=== PATIENT | female | born 1960 | race African-American/Black ===

== ENCOUNTER 2017-03-03 20:25 | Inpatient (IN) | payer MEDICAID ==
[~2017-03-03] VITALS: Ht 157.5 cm; Wt 96.6 kg
[2017-03-03] MEDS ORDERED: SODIUM CHLORIDE 0.9% 1,000 ML IV SCH (20:35)
[2017-03-03 21:00] LABS: HEMATOCRIT 34.1 % (34.6-47.8); HEMOGLOBIN 10.7 g/dL (11.7-16.4); WHITE BLOOD COUNT 7.9 x10^3/uL (3.4-10)
[2017-03-03] MEDS ORDERED: CLOPIDOGREL 300 MG TABLET PO ONE (21:00)
[2017-03-03 21:24] LABS: ASPARTATE AMINO TRANSFERASE 14 U/L (15-37); BLOOD UREA NITROGEN 13 mg/dL (7-18)
[2017-03-03] MEDS ORDERED: METOPROLOL TARTRATE 50 MG TABLET ONE (21:46)
[2017-03-03] MEDS ORDERED: METOPROLOL TARTRATE 25 MG TABLET PO SCH (22:00)
[2017-03-03] MEDS ORDERED: ATOR40TA PO (22:01)
[2017-03-03] MEDS ORDERED: DULO30CA2 PO (22:01)
[2017-03-03] MEDS ORDERED: CLOP75TA52 PO (22:01)
[2017-03-03] MEDS ORDERED: LISI-167 PO (22:01)
[2017-03-03] MEDS ORDERED: METO25TA35 PO (22:01)
[2017-03-03] MEDS ORDERED: GABA300C10 PO (22:01)
[2017-03-03] MEDS ORDERED: ASPI-496 PO (22:01)
[2017-03-03] MEDS ORDERED: ONDANSETRON 2MG/ML, 2ML IVPush PRN (22:30)
[2017-03-03] MEDS ORDERED: hydrALAzine 20 MG/ML, 1ML IVPush PRN (22:30)
[2017-03-03] MEDS ORDERED: POTASSIUM CHLORIDE 20 MEQ TAB.ER.PRT PO ONE (22:30)
[2017-03-03] MEDS ORDERED: morphine SULFATE 10 MG/ML, 1ML IVPush PRN (22:30)
[2017-03-03] MEDS ORDERED: POTASSIUM CHLORIDE 20 MEQ TAB.ER.PRT ONE (22:41)
[2017-03-03] MEDS: ATORVASTATIN 40 MG TABLET PO SCH (22:43)
[2017-03-03] MEDS: SODIUM CHLORIDE 0.9% 1,000 ML IV SCH (22:44)
[2017-03-03 23:03] LABS: IS PT STATUS REG ER OR PRE ER? YES
[2017-03-04] VITALS (8 sets, daily range): BP systolic 107–156; BP diastolic 68–104
[2017-03-04 05:22] LABS: BLOOD UREA NITROGEN 15 mg/dL (7-18)
[2017-03-04] MEDS ORDERED: ASPIRIN 81 MG TABLET CHEW ONE (05:22)
[2017-03-04 05:30] LABS: IS PT STATUS REG ER OR PRE ER? YES
[2017-03-04] MEDS: ASPIRIN 81 MG TABLET EC PO SCH (06:20)
[2017-03-04] MEDS: METOPROLOL TARTRATE 25 MG TABLET PO SCH ×2 (06:21→18:18)
[2017-03-04 06:53] LABS: HEMATOCRIT 33.4 % (34.6-47.8); HEMOGLOBIN 10.8 g/dL (11.7-16.4); WHITE BLOOD COUNT 5.5 x10^3/uL (3.4-10)
[2017-03-04] MEDS ORDERED: SODIUM CHLORIDE 0.9% 1,000 ML IV SCH (07:48)
[2017-03-04] MEDS: CLOPIDOGREL 75 MG TABLET PO SCH (08:46)
[2017-03-04] MEDS ORDERED: LISINOPRIL 10 MG TABLET PO SCH (09:00)
[2017-03-04 09:23] LABS: DAU SCREEN DISCLAIMER
[2017-03-04] MEDS: OXYcodone IR 5MG TABLET PO PRN (11:32)
[2017-03-04] MEDS: SODIUM CHLORIDE 0.9% 1,000 ML IV SCH ×4 (11:33→22:55)
[2017-03-04] MEDS: DULOXETINE 30 MG CAPSULE.DR PO SCH (11:33)
[2017-03-04] MEDS ORDERED: TICAGRELOR 90 MG TABLET ONE (12:41)
[2017-03-04] MEDS ORDERED: FENTANYL PF 100 MCG/2ML ONE (12:41)
[2017-03-04] MEDS ORDERED: MIDAZOLAM 1 MG/ML, 5ML ONE (12:41)
[2017-03-04] MEDS ORDERED: VERAPAMIL 2.5 MG/ML, 2ML ONE (12:42)
[2017-03-04] MEDS ORDERED: LIDOCAINE 2%, 20ML ONE (12:42)
[2017-03-04] MEDS ORDERED: BIVALIRUDIN 250 MG ONE (12:42)
[2017-03-04] MEDS ORDERED: NITROGLYCERIN 5 MG/ML, 10ML ONE (12:42)
[2017-03-04] MEDS ORDERED: HEPARIN 1,000 UNITS/ML, 10ML ONE (12:42)
[2017-03-04 15:42] LABS: IS PT STATUS REG ER OR PRE ER? NO
[2017-03-04] MEDS: ATORVASTATIN 40 MG TABLET PO SCH (20:04)
[2017-03-04] MEDS: GABAPENTIN 300 MG CAPSULE PO SCH (20:04)
[2017-03-04] MEDS: NITROGLYCERIN 0.4 MG BOTTLE (25 TABS) SL PRN ×2 (20:53→21:00)
[2017-03-04] MEDS ORDERED: NITROGLYCERIN 0.4 MG/SPRAY SL PRN (21:00)
[2017-03-05 02:18] VITALS: BP 138/79
[2017-03-05] MEDS: METOPROLOL TARTRATE 25 MG TABLET PO SCH ×2 (05:42→18:07)
[2017-03-05] MEDS: ASPIRIN 81 MG TABLET EC PO SCH (05:42)
[2017-03-05] MEDS: SODIUM CHLORIDE 0.9% 1,000 ML IV SCH (05:43)
[2017-03-05 08:45] VITALS: BP 139/79
[2017-03-05] MEDS: DULOXETINE 30 MG CAPSULE.DR PO SCH (08:52)
[2017-03-05] MEDS: CLOPIDOGREL 75 MG TABLET PO SCH (08:52)
[2017-03-05] MEDS: OXYcodone IR 5MG TABLET PO PRN (08:59)
[2017-03-05] MEDS: LISINOPRIL 10 MG TABLET PO SCH ×2 (08:59→20:14)
[2017-03-05 13:38] VITALS: BP 119/83
[2017-03-05 18:05] VITALS: BP 143/91
[2017-03-05] MEDS: ACETAMINOPHEN 325 MG TABLET PO PRN (18:13)
[2017-03-05 19:22] VITALS: BP 150/89
[2017-03-05] MEDS: ATORVASTATIN 40 MG TABLET PO SCH (20:14)
[2017-03-05] MEDS: GABAPENTIN 300 MG CAPSULE PO SCH (20:14)
[2017-03-06 00:50] VITALS: BP 147/93
[2017-03-06] MEDS: ASPIRIN 81 MG TABLET EC PO SCH (06:11)
[2017-03-06] MEDS: METOPROLOL TARTRATE 25 MG TABLET PO SCH (06:11)
[2017-03-06] MEDS: ACETAMINOPHEN 325 MG TABLET PO PRN (06:14)
[2017-03-06] MEDS ORDERED: LISI-167 PO (07:50)
[2017-03-06] MEDS ORDERED: NITR0.4T SL (07:50)
[2017-03-06 08:17] VITALS: BP 148/86
[2017-03-06] MEDS: DULOXETINE 30 MG CAPSULE.DR PO SCH (08:40)
[2017-03-06] MEDS: LISINOPRIL 10 MG TABLET PO SCH (08:40)
[2017-03-06] MEDS: CLOPIDOGREL 75 MG TABLET PO SCH (08:40)
[2017-03-06 13:56] VITALS: BP 148/82
== END 2017-03-06 14:50 | disposition home or self-care (01) | DRG 281 ==
LOC: SUATTDRO 22:11 → ED 22:38 → EDIP 22:45 → 5SO 03-04 09:46 → DCLOUNGE 03-06 14:35
PROVIDERS: ADMIT Hospitalist; ATTEND Hospitalist
PROC: 4A023N7 Measurement of Cardiac Sampling and Pressure, Left Heart, Percutaneous Approach (ICD-10-PCS; principal; 2017-03-04)
PROC: B2111ZZ Fluoroscopy of Multiple Coronary Arteries using Low Osmolar Contrast (ICD-10-PCS; 2017-03-04)
PROC: B2151ZZ Fluoroscopy of Left Heart using Low Osmolar Contrast (ICD-10-PCS; 2017-03-04)
DX: I21.4 Non-ST elevation (NSTEMI) myocardial infarction (principal); I47.2 Ventricular tachycardia; F14.10 Cocaine abuse, uncomplicated; D50.0 Iron deficiency anemia secondary to blood loss (chronic); E78.5 Hyperlipidemia, unspecified; F17.200 Nicotine dependence, unspecified, uncomplicated; I25.110 Atherosclerotic heart disease of native coronary artery with unstable angina pectoris; I11.9 Hypertensive heart disease without heart failure; Z91.19 Patient's noncompliance with other medical treatment and regimen; I25.2 Old myocardial infarction; Z82.49 Family history of ischemic heart disease and other diseases of the circulatory system; Z79.02 Long term (current) use of antithrombotics/antiplatelets; Z95.5 Presence of coronary angioplasty implant and graft; Z71.6 Tobacco abuse counseling
CPT/HCPCS: 36415; 71010; 80047; 80048; 80051; 80053; 80061; 80307; 83735; 84100; 84484; 85025; 85379; 85610; 85730; 93005; 93306; 93458; 99156; 99157; 99285; C1769; C1894; J0583; J1644; J2250; J3010; J3490; G0479; J7030; Q9967